=== PATIENT | female | born 1995 | race Caucasian/White ===

== ENCOUNTER 2020-08-29 15:01 | Emergency (ER) | payer SELFPAY ==
[2020-08-29 15:17] VITALS: BP 151/96; PULSE 81; TEMP 98.3; BMI 38.8
== END 2020-08-29 17:14 | disposition home or self-care (01) ==
LOC: JER 15:01
DX: R07.1 Chest pain on breathing (principal); Z11.52 Encounter for screening for COVID-19
CPT/HCPCS: 71046-TC-FY; 93005; 93010; 99285-25; C9803; U0003; U0005